=== PATIENT | female | born 1955 | race Caucasian/White ===

== ENCOUNTER → 2020-03-24 08:18 | Outpatient (BNVA) | payer BC, SELFPAY | PROVIDERS: Family Provider Nurse Practitioner; Visit Provider Nurse Practitioner | DX: K14.6 Glossodynia (principal) | CPT/HCPCS: 99204 ==

== ENCOUNTER → 2020-07-16 10:37 | Outpatient (BNVA) | payer MEDICARE, BC, SELFPAY | PROVIDERS: Family Provider Nurse Practitioner; PCP Nurse Practitioner; Visit Provider Nurse Practitioner | DX: K14.6 Glossodynia (principal) | CPT/HCPCS: 99213 ==

== ENCOUNTER 2020-09-03 11:22 | Outpatient (CLI) | payer MEDICARE, BC, SELFPAY ==
--- NOTE | 2020-09-03 11:45 | MR_ITS ---
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 No acute infarcts are seen. Dotson-white matter differentiation is well preserved. No susceptibility artifacts or prior lacunar infarcts. Ventricles and extra-axial spaces are normal. Clivus and pituitary gland are normal. Visualized posterior fossa and brainstem are also normal. No enhancing masses within the brain. RIGHT frontal developmental venous angioma is again identified. This was also described on the prior study from 2014. No associated hemorrhage. Dural venous sinuses are normal. Paranasal sinuses: Well aerated with no significant disease. Mastoid air cells: Normal. Calvarium and scalp: Normal. MR/MR head wo/w con [id number] IMPRESSION: 1. No acute infarct or mass. 2. Stable RIGHT frontal developmental venous angioma.
[2020-09-03 12:42] LABS: Blood Urea Nitrogen 11 mg/dL (8-23)
[2020-09-03] MEDS: gadobenate dimeglumine 20 mL vial IV (12:55)
== END 2020-09-03 11:23 | disposition home or self-care (01) ==
PROVIDERS: PCP Nurse Practitioner; Visit Provider Nurse Practitioner
DX: K14.6 Glossodynia (principal); Q28.3 Other malformations of cerebral vessels
CPT/HCPCS: 36415; 70553; 82565; 84520; A9577; A9579

== ENCOUNTER → 2020-09-20 15:34 | Outpatient (BNVA) | payer MEDICARE, BC, SELFPAY | PROVIDERS: PCP Nurse Practitioner; Visit Provider Nurse Practitioner | DX: K14.6 Glossodynia (principal) | CPT/HCPCS: 99213 ==

== ENCOUNTER 2021-07-13 09:37 | Outpatient (CLI) | payer MEDICARE, BC, SELFPAY ==
[2021-07-13 09:55] VITALS: BP 137/80; PULSE 69; RESP 19; TEMP 36.4; O2SAT 98
[2021-07-13 09:58] VITALS: BMI 21.6
[2021-07-13 10:50] VITALS: BP 163/77; PULSE 74; RESP 20; TEMP 36.4; O2SAT 97
[2021-07-13 11:48] VITALS: BP 139/80; PULSE 64; RESP 17; TEMP 36.8; O2SAT 98
== END 2021-07-13 09:38 | disposition home or self-care (01) ==
LOC: OPS 09:40
PROVIDERS: PCP Nurse Practitioner; Visit Provider Family Medicine
DX: U07.1 COVID-19 (principal)
CPT/HCPCS: 96365

== ENCOUNTER 2025-03-06 15:20 | Outpatient (CLI) | payer MEDICARE, SELFPAY ==
--- NOTE | 2025-03-06 15:36 | MR_ITS ---
WS: [id number] MRI LUMBAR SPINE NONCONTRAST TECHNIQUE: Sagittal T1, T2 and STIR imaging. Axial T1 and T2 imaging. CLINICAL INFORMATION: disc COMPARISON: None. FINDINGS: Mild lumbar curve. Grade 1 anterolisthesis L4 on L5. Schmorl's nodes in the lower thoracic and lumbar spine. L1-L2: Narrowing of the RIGHT subarticular recess. Spinal canal and foramen are patent. L2-L3: Mild disc bulging with narrowing of the subarticular recess bilaterally. Mild facet arthropathy. Foramen are patent. L3-L4: Mild annular bulging. Narrowing of the subarticular recess. Mild facet arthropathy. Foramen are patent. L4-L5: Grade 1 anterolisthesis. Mild disc bulging with impingement on the RIGHT greater than LEFT subarticular recess. Foramen are patent. Moderate facet arthropathy. L5-S1: Mild disc bulging with a shallow central protrusion. Slight effacement ventral thecal sac. Spinal canal and foramen are patent. Mild facet arthropathy. Visualized pelvic bony structures: Normal. Paravertebral soft tissues: Normal. Small LEFT renal cyst partially visualized. Disc osteophyte protrusions in the cervical spine at C5-C6 and C6-C7. Slight contact of the cervical cord. MR/MR lumbar spine wo con* [id number] IMPRESSION: 1. Grade 1 anterolisthesis L4 on L5. Mild lumbar curve. No acute compression. 2. Mild disc bulging L4-5 with impingement on the RIGHT greater than LEFT suba rticular recess. 3. Mild narrowing of the RIGHT L1-2, bilateral L2-3, and bilateral L3-4 subart icular recess. 4. Moderate facet arthropathy L4-5.
== END 2025-03-06 15:21 | disposition home or self-care (01) ==
PROVIDERS: PCP Electrodiagnostic Medicine; Visit Provider Electrodiagnostic Medicine
DX: M47.816 Spondylosis without myelopathy or radiculopathy, lumbar region (principal); M51.360 Other intervertebral disc degeneration, lumbar region with discogenic back pain only
CPT/HCPCS: 72148